=== PATIENT | female | born 1960 | race Caucasian/White ===

== ENCOUNTER 2018-08-17 08:10 | Outpatient (CLI) | payer BC ==
--- NOTE | 2018-08-17 09:07 | ULT ---
ULTRASOUND ABDOMEN LIMITED: (RIGHT UPPER QUADRANT) HISTORY: A 57-year-old female with right upper quadrant abdominal pain. FINDINGS: The gallbladder has normal wall thickness and has no evidence of gallstones or sludge. The hepatic e chogenicity is normal. The right kidney has normal echogenicity and has no hydronephrosis. The panc reas is visualized, although ultrasound is relatively insensitive for pancreatic pathology compared t o CT and MRI. There is no biliary dilation. The common duct caliber is 3 mm. IMPRESSION: Normal. genoveva [] POS: [facility]
== END 2018-08-17 08:11 | disposition home or self-care (01) ==
LOC: SCSULT 08:10
PROVIDERS: ATTEND Family Medicine
DX: R10.11 Right upper quadrant pain (principal)
CPT/HCPCS: 76705

== ENCOUNTER 2022-03-06 14:52 | Outpatient (CLI) | payer BC | END 2022-03-06 14:53 | disposition home or self-care (01) | LOC: BICULT 14:52 | PROVIDERS: ATTEND Internal Medicine Hematology & Oncology | DX: R22.1 Localized swelling, mass and lump, neck (principal) | CPT/HCPCS: 76536 ==